=== PATIENT | male | born 1990 | race Caucasian/White ===

== ENCOUNTER 2021-12-27 02:24 | Emergency (ER) | payer SELFPAY ==
[~2021-12-27] VITALS: Ht 182.9 cm; Wt 77.1 kg
--- NOTE | 2021-12-27 02:34 | NUR ---
[address] WAS FOUND UNCONCIOUS. GIVEN NARCAN 2MG IVP. PATIENT ALERT AND ORIENTED X3. AMBULATORY WITH NON LABORED BREATHING IN BED 12 AWAITING MD COREAS.
--- NOTE | 2021-12-27 03:07 | NUR ---
LAB AT BEDSIDE
[2021-12-27] MEDS ORDERED: ONDANSETRON HCL/PF 4 MG/2 ML VIAL ONE (03:09)
--- NOTE | 2021-12-27 03:27 | NUR ---
BLOOD COLLECTED AND SENT TO LAB
--- NOTE | 2021-12-27 03:28 | NUR ---
URINE COLLECTED AND SENT TO LAB
[2021-12-27] MEDS ORDERED: ONDANSETRON HCL/PF 4 MG/2 ML VIAL IV ONE (03:30)
[2021-12-27 03:52] LABS: BASOPHILS % (AUTO) 0.7 % (0.0-2.0); EOSINOPHILS % (AUTO) 2.1 % (0.0-6.0); HEMATOCRIT 40 % (39-51); HEMOGLOBIN 13.2 g/dL (13.5-17.5); LYMPHOCYTES # (AUTO) 1.9 K/uL (0.8-4.8); MEAN CORPUSCULAR HGB CONC 33 g/dl (31.0-36.0); MEAN CORPUSCULAR VOLUME 87 fL (80-96); MONOCYTES # (AUTO) 0.5 K/uL (0.1-1.30); MONOCYTES % (AUTO) 8.5 % (2.0-12.0); NEUTROPHILS % (AUTO) 54.7 % (43.0-81.0); PLATELET COUNT (AUTO) 193 K/uL (150-450); RED BLOOD CELL COUNT(AUTO) 4.59 MIL/uL (4.5-6.0); WHITE BLOOD COUNT (AUTO) 5.5 K/uL (4.3-11.0)
[2021-12-27 03:55] LABS: BILIRUBIN,URINE NEGATIVE (NEGATIVE); COLOR,URINE YELLOW (YELLOW); LEUKOCYTE ESTERASE ,URINE NEGATIVE (NEGATIVE); NITRITE, URINE NEGATIVE (NEGATIVE); PROTEIN,URINE 100 mg/dl (NEGATIVE); UGLUCOSE 100 MG/DL mg/dL (NEGATIVE)
[2021-12-27 04:19] LABS: ALANINE AMINOTRANSFERASE 38 U/L (12-78); ALKALINE PHOSPHATASE 125 U/L (46-116); ASPARTATE AMINOTRANSFERASE 31 U/L (15-37); BILIRUBIN,DIRECT 0.1 mg/dL (0.0-0.2); BILIRUBIN,TOTAL 0.4 mg/dL (0.2-1.0); CARBON DIOXIDE 34 mmol/L (21-32); CHLORIDE 104 mmol/L (98-107); CREATININE 1.2 mg/dL (0.6-1.3); GLUCOSE 182 mg/dL (74-106); POTASSIUM 4.1 mmol/L (3.5-5.1); SODIUM SERUM 142 mmol/L (136-145); TOTAL PROTEIN, SERUM 7.4 g/dL (6.4-8.2); UREA NITROGEN, BLOOD 16 mg/dL (7-18)
[2021-12-27 04:22] LABS: ACETAMINOPHEN 0 ug/ml (10-30); ALCOHOL, BLOOD < 3 mg/dL (0-0)
[2021-12-27 04:25] LABS: BACTERIA,URINE Rare /HPF (None Seen); RBC,URINE 0-2 /HPF (0-2)
[2021-12-27 04:26] LABS: COARSE GRANULAR CASTS,URINE Few /LPF (None Seen); SQUAMOUS EPITHELIAL CELL,UR Few /HPF (None Seen)
--- NOTE | 2021-12-27 06:24 | NUR ---
PT IS AWAKE AND ALERT. NOT IN ANY RESP DISTRESS, BREATHING EVEN AND UNLABORED. PT VERBALIZED THAT HE IS BETTER THAN EARLIER.
--- NOTE | 2021-12-27 08:00 | NUR ---
PT SLEEPING IN BED, ABLE TO BE AWAKENED. NOT IN ACUTE DISTRESS.
--- NOTE | 2021-12-27 14:15 | NUR ---
AWAKE AND ALERT, PROVIDED WATER, TOLERATED WELL
--- NOTE | 2021-12-27 18:48 | NUR ---
The patient is alert and oriented x3. In room air and denies SOB. Respiration regular and unlabored. Denies pain. The patient has stable gait. Dinner provided. The patient rosalind food well. Patient discharged to home in stable condition. Written and verbal after care instructions given. Patient verbalizes understanding of instruction.
[2021-12-27 18:49] VITALS: BP 126/72
== END 2021-12-27 18:49 | disposition home or self-care (01) ==
LOC: ER 02:26
DX: F15.929 Other stimulant use, unspecified with intoxication, unspecified (principal); I10 Essential (primary) hypertension
CPT/HCPCS: 36415; 80048; 80076; 80143; 80307; 80320; 81001; 85025; 96374; 99285; J2405; G0480